=== PATIENT | female | born 1995 | race Hispanic/Latino ===

== ENCOUNTER 2024-01-25 20:09 | Observation (INO) | payer OTHER ==
[2024-01-25] MEDS ORDERED: Ondansetron PF 4 MG/2 ML Vial ONE (20:44)
[2024-01-25] MEDS ORDERED: Morphine 4 MG/ML VIAL ONE (20:44)
[2024-01-25] MEDS ORDERED: Ketorolac Tromethamine 30 MG (1 mL) VIAL ONE (20:44)
[2024-01-25 21:30] LABS: #Basophils 0.03 10x3/uL (0.0-0.2); %Basophils 0.2 % (0.0-1.0); %Eosinophils 0.4 % (0.0-10.0); %Lymphocytes 15.6 % (21.0-51.0); %Monocytes 5.1 % (0.0-10.0); %Neutrophils 78.3 % (42.0-75.0); Hematocrit 40.8 % (36.0-47.0); Hemoglobin 14.3 g/dL (12.0-16.0); Mean Corpuscular Hemoglobin 28.8 pg (27.0-31.0); Mean Corpuscular Volume 82.1 fL (78.0-98.0); Mean Platelet Volume 10.7 fL (7.4-10.4); Platelet Count 382 10x3/uL (130-400); RBC Distribution Width 12.2 % (11.5-14.5); Red Blood Cell (RBC) Count 4.97 mill/uL (4.20-5.40)
[2024-01-25 21:52] LABS: ALT (SGPT) 112 U/L (8-55); AST (SGOT) 156 U/L (5-34); Alkaline Phosphatase 175 U/L (40-110); Anion Gap 19 mmol/L (10-20); BUN (Urea Nitrogen) 12 mg/dL (7.0-18.7); Bilirubin, Total 1.2 mg/dL (0.2-1.2); Calc. Creatinine Clearance 0 mL/min (70-130); Calcium 9.9 mg/dL (7.8-10.44); Carbon Dioxide 19 mmol/L (22-29); Chloride 104 mmol/L (98-107); Estimated GFR 115; Globulin 4.6 g/dL (2.4-3.5); Glucose 118 mg/dL (70-105); Lipase 24 U/L (8-78); Protein, Total 8.6 g/dL (6.0-8.3); Sodium 138 mmol/L (136-145)
[2024-01-25] MEDS ORDERED: Ketorolac Tromethamine 30 MG (1 mL) VIAL IVP PRN (22:33)
[2024-01-25] MEDS ORDERED: hydrALAZINE 20 MG/ML VIAL SLOW IVP PRN (22:33)
[2024-01-25] MEDS ORDERED: Mag-Al 1200 mg/1200 mg/30 ML UDCUP PO PRN (22:33)
[2024-01-25] MEDS ORDERED: Promethazine HCl 25 MG/ML VIAL IM PRN (22:33)
[2024-01-25] MEDS ORDERED: Calcium Carbonate 500 MG ChewTAB PO PRN (22:33)
[2024-01-25] MEDS ORDERED: Acetaminophen 325 MG TAB PO PRN (22:33)
[2024-01-25] MEDS ORDERED: Ondansetron PF 4 MG/2 ML Vial IVP PRN (22:33)
[2024-01-25] MEDS ORDERED: Morphine 4 MG/ML VIAL SLOW IVP PRN (22:33)
[2024-01-25] MEDS ORDERED: HYDROcodone/Acetaminophen 7.5/325 mg Tablet PO PRN ×2 (22:41→23:57)
[2024-01-26] MEDS ORDERED: CEFAZOLIN 2 GM VIAL ONE (00:08)
[2024-01-26 01:11] VITALS: BMI 41.9
[2024-01-26] MEDS: Lactated Ringer's 1,000 ML IV SCH (01:13)
[2024-01-26] MEDS: metroNIDAZOLE 500 MG in Premix 1 BAG IVPB SCH (01:13)
[2024-01-26] MEDS: LevoFLOXacin 750 mg/D5W 750 MG in Premix 1 BAG IVPB SCH (01:14)
[2024-01-26 06:11] LABS: #Basophils Less than 0.03 10x3/uL (0.0-0.2); %Basophils 0.3 % (0.0-1.0); %Eosinophils 1.2 % (0.0-10.0); %Lymphocytes 31.1 % (21.0-51.0); %Monocytes 9.4 % (0.0-10.0); %Neutrophils 57.7 % (42.0-75.0); Hematocrit 35.4 % (36.0-47.0); Mean Corpuscular HGB CONC 33.9 g/dL (32.0-36.0); Mean Corpuscular Hemoglobin 29.8 pg (27.0-31.0); Mean Corpuscular Volume 87.8 fL (78.0-98.0); Mean Platelet Volume 10.5 fL (7.4-10.4); Platelet Count 289 10x3/uL (130-400); RBC Distribution Width 12.5 % (11.5-14.5); Red Blood Cell (RBC) Count 4.03 mill/uL (4.20-5.40)
[2024-01-26] MEDS ORDERED: traMADol HCl 50 MG TAB PO PRN (06:24)
[2024-01-26] MEDS: Ketorolac Tromethamine 30 MG (1 mL) VIAL IVP SCH (06:48)
[2024-01-26] MEDS ORDERED: PROPOFOL 20 ML ONE (06:52)
[2024-01-26] MEDS ORDERED: Midazolam HCl 2 mg/2 ml Vial ONE (06:52)
[2024-01-26] MEDS ORDERED: Fentanyl 250 MCG/5 ML VIAL ONE (06:52)
[2024-01-26] MEDS ORDERED: Rocuronium Bromide 10 MG/ML (10ML VIAL) ONE (06:56)
[2024-01-26] MEDS ORDERED: Lidocaine 2% PF 5 ML VIAL ONE (06:56)
[2024-01-26 07:04] LABS: ALT (SGPT) 312 U/L (8-55); AST (SGOT) 473 U/L (5-34); Albumin 2.9 g/dL (3.5-5.0); Alkaline Phosphatase 154 U/L (40-110); Anion Gap 11 mmol/L (10-20); BUN (Urea Nitrogen) 10 mg/dL (7.0-18.7); Bilirubin, Total 1.4 mg/dL (0.2-1.2); Calc. Creatinine Clearance 201 mL/min (70-130); Calcium 8.1 mg/dL (7.8-10.44); Carbon Dioxide 23 mmol/L (22-29); Chloride 106 mmol/L (98-107); Estimated GFR 121; Globulin 3.4 g/dL (2.4-3.5); Glucose 84 mg/dL (70-105); Potassium 3.6 mmol/L (3.5-5.1); Protein, Total 6.3 g/dL (6.0-8.3); Sodium 136 mmol/L (136-145)
[2024-01-26] MEDS ORDERED: EPINEPHrine 1 MG/ML VIAL ONE (07:04)
[2024-01-26] MEDS ORDERED: Bupivacaine PF 0.5% 30 ML VIAL ONE (07:05)
[2024-01-26] MEDS ORDERED: Dexamethasone 4 mg/ml Vial ONE (07:49)
[2024-01-26] MEDS ORDERED: Ondansetron PF 4 MG/2 ML Vial ONE (07:49)
[2024-01-26] MEDS ORDERED: Iopamidol 0 ML ONE (07:54)
[2024-01-26] MEDS ORDERED: SUGAMMADEX SODIUM 200 MG/2 ML VIAL ONE (07:56)
[2024-01-26] MEDS ORDERED: Glucagon 1 MG/ML KIT ONE (08:11)
[2024-01-26] MEDS ORDERED: Famotidine 20 MG TAB PO SCH (09:00)
[2024-01-26] MEDS ORDERED: Ibuprofen 600 MG TAB PO PRN (09:24)
[2024-01-26] MEDS ORDERED: fentaNYL 50 mcg/mL 1 mL Vial ONE ×2 (09:46→09:55)
[2024-01-26 10:22] VITALS: BP 111/73; TEMP 98.2
[2024-01-26] MEDS: Acetaminophen 500 MG TAB PO SCH (10:33)
[2024-01-26] MEDS: FLUoxetine HCl 20 MG CAP PO SCH (10:34)
== END 2024-01-26 14:45 | disposition home or self-care (01) ==
LOC: EEVIPCON 20:09 → ERS 20:09 → SURG A 22:33
PROVIDERS: ADMIT Surgery; ATTEND Surgery
PROC: 0FT44ZZ Resection of Gallbladder, Percutaneous Endoscopic Approach (ICD-10-PCS; principal; 2024-01-26)
PROC: BF532Z0 Other Imaging of Gallbladder and Bile Ducts using Fluorescing Agent, Intraoperative (ICD-10-PCS; 2024-01-26)
DX: K80.12 Calculus of gallbladder with acute and chronic cholecystitis without obstruction (principal); D36.0 Benign neoplasm of lymph nodes; Z87.59 Personal history of other complications of pregnancy, childbirth and the puerperium; Z88.0 Allergy status to penicillin
CPT/HCPCS: 36415; 47532; 76705; 80053; 83690; 85025; 88304; 96361; 96365; 96366; 96367; 96368; 96375; 96376; C1889; G0378; J0171; J0665; J1100; J1611; J1885; J1956; J2001; J2250; J2272; J2405; J2704; J3010; J7120; Q9967